=== PATIENT | male | born 1970 | race Caucasian/White ===

== ENCOUNTER 2021-10-16 08:25 | Outpatient (CLI) | payer BC, SELFPAY ==
--- NOTE | 2021-11-04 22:13 | WPDHOMESLEEP ---
Sleep Study - Home Unattended Date of Study: 10/16/21 Ordering Provider: Isabel Kauffman NP Interpreting Provider: Angelica Trujillo, DO Home Sleep Study Type: Watch PAT Height: 1.91 m Weight: 147.418 kg Body Mass Index: 40.6 Neck Circumference (inches): 18.25 [place]: 8 Reason for Sleep Study Snoring, awakening for sleep short of breath Sleep History The patient is a 50-year-old male with hypertension of code and history of tobacco use now had a sleep study ordered by his primary care for evaluation of sleep. 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 He occasionally awakens from sleep short of breath. He occasionally awakens at night with heartburn, belching or cough. He constantly snores loud enough others complain. He occasionally has trouble sleeping when he has a cold. He denies waking up gasping for air throughout the night. He frequently has breathing problems at night observed by himself or others. He rarely sweats excessively at night. He rarely has heart palpitations or irregular heartbeats during the night. He denies falling asleep during the day and while driving. He denies sleep paralysis, cataplexy and hypnagogic / hypnopompic hallucinations. He denies having trouble at school or work due to sleepiness. Denies feeling afraid of when to sleep. He denies having nightmares. He rarely remembers his dreams. He rarely has thoughts racing through his mind. He rarely feels sad, depressed or anxious. He rarely has muscular tension. He rarely notices parts of his body jerk. He rarely kicks during the night. He denies having crawling and aching feelings in his legs as well as leg pain during the night. He denies grinding his teeth during sleep and awakening with morning jaw pain. He is rarely bothered by pain during the day and denies being awakened by pain during the night. He rarely wakes up feeling stiff in morning. He denies waking up with sore achy muscles. He denies waking up with pain in the neck, spine or other joints. The patient goes to bed at 9:00 p.m. on weekdays and 11:00 p.m. on the weekends. He is able to fall asleep within minutes. He wakes up 3-4 times throughout the night for unknown reasons, when he awakens, he will look at the alarm clock. He is able fall back asleep within minutes. He wakes up at 4:30 a.m. on weekdays and 5 at 6:30 a.m. on the weekends. He typically gets 8 hours of sleep per. He will stay in bed for 20 minutes after waking up in the morning. He currently lives with his and 2 children. He does not consume any caffeinated beverages within 2 hours of bedtime. He does not engage in physical exercise before bedtime. He will watch television before falling asleep. He denies taking naps in the afternoon or the evening. He drinks 1 cup of caffeinated beverage every morning. He quit smoking cigarettes 25 years ago. He denies alcohol and recreational drug use. [facility] Past Medical History Medical History GERD (gastroesophageal reflux disease) Hypertension Surgical History Surgical History H/O knee surgery History of shoulder surgery Family History Family History Father Skin cancer Social History Social History Smoking status: Never smoker Alcohol intake: never Substance use: never Medications Home Medications Medication Instructions Recorded Confirmed Type losartan 50 mg tablet 50 mg PO DAILY #90 tabs 08/21/21 08/21/21 Rx omeprazole 20 mg capsule,delayed 20 mg PO DAILY #90 caps 08/25/21 Rx release Sleep Procedure The sleep study was completed using [employer] a technically adequate device with seven channels: peripheral arterial tone, actigraphy, body position, snore, respiratory movement, pulse oximetry, sleep st
[2021-11-04 22:23] VITALS: BMI 40.6
== END 2021-10-21 13:49 | disposition home or self-care (01) ==
PROVIDERS: PCP Nurse Practitioner Family; Visit Provider Nurse Practitioner Family
DX: G47.30 Sleep apnea, unspecified (principal); G47.33 Obstructive sleep apnea (adult) (pediatric)
CPT/HCPCS: 95800

== ENCOUNTER 2022-09-15 12:54 | Outpatient (NON) | payer BC, SELFPAY | END 2022-09-15 12:55 | disposition home or self-care (01) | PROVIDERS: PCP Nurse Practitioner Family; Visit Provider Nurse Practitioner | DX: L72.0 Epidermal cyst (principal) | CPT/HCPCS: 88305 ==

== ENCOUNTER 2022-10-21 16:05 | Outpatient (CLI) | payer BC, SELFPAY ==
--- NOTE | ~2022-10-21 | XR_ITS ---
EXAM: XR soft tissue neck DATE: 10/21/2022 16:20 HISTORY: SORE THROAT X 9 MONTHS . COMPARISON: None available. FINDINGS: Cervical straightening which can occur with positioning or muscle spasm. Multilevel mild c ervical degenerative disc disease. Normal prevertebral soft tissues. Patent airways. Normal epiglotti s Aerated spaces are clear. The apices of the lungs are clear. IMPRESSION: Unremarkable neck soft tissue radiograph findings. Reviewed, dictated and finalized at location K.
== END 2022-10-21 16:06 | disposition home or self-care (01) ==
LOC: CHSIMG 16:07
PROVIDERS: PCP Nurse Practitioner Family; Visit Provider Nurse Practitioner Family
DX: R49.0 Dysphonia (principal); J31.2 Chronic pharyngitis
CPT/HCPCS: 70360

== ENCOUNTER 2023-01-18 01:13 | Day surgery (SDC) | payer BC, SELFPAY ==
[2023-01-13 12:57] VITALS: BMI 42.5
--- NOTE | 2023-01-13 13:02 | PC.NURSE ---
Report to the Outpatient Waiting Room, entrance under the green pavilion located off [facility], at time 0645 on date 01/18/23. Planned Procedure Time: 0845. Time changes happen often and if your time is changed the preop area will call you the afternoon before. - You and your visitor will be asked to self-screen and do not enter if you have any COVID symptoms. - A mask is optional within the hospital at this time. Patients may have clear liquids (water, carbonated beverages, clear teas, apple juice) until 3 hours prior to surgery with a maximum of 20 ounces. - No food from midnight until time of surgery Take the following medications with a SIP of water the morning of surgery: NONE DO NOT STOP ANY OF YOUR OTHER PRESCRIPTION MEDICATIONS PRIOR TO SURGERY ?EXCEPT THE FOLLOWING Medications to discontinue per physician: N/A Date to take last dose: N/A Please no make-up, nail micronesian, hairspray, perfume, deodorant, or body powder the day of surgery. No jewelry (including any body piercings) or valuables the day of surgery, leave them at home. Please take a shower or bath the night before, or the morning of, surgery with an antibacterial soap. Wear comfortable, loose fitting clothing. - Jewelry must be removed prior to entering the operating room. Rings and piercings that are not removed may be cut off. - The hospital will not accept responsibility for valuables. - Please leave all valuables, including medications, at home the day of surgery. If you are going home after surgery, a licensed furniture delivery driver must drive you home. - NO public transportation without another adult if you receive anesthesia. - We recommend that an adult stay with you for 24 hours following discharge. - We also recommend that you do not drive, make important decision, drink alcoholic beverages, or take any drugs that were not prescribed by your health care provider for at least 24 hours after your discharge time. Follow any additional instructions given to you from your surgeon. If you or anyone in your household have experienced Covid symptoms in the past week, please notify your surgeon or the nurse liaison at the phone number below for possible testing. Telephone instructions given to PT - LEANN CARPENTER and asked if any additional questions and then verbalized understanding. Patient advised to call surgeon office or pre surgery nurse liaison [phone] if any additional questions.
--- NOTE | 2023-01-14 09:48 | P.HP_ITS ---
History of Present Illness History of Present Illness Consent: Risks, benefits, and alternatives have been discussed and questions answered. Patient agrees to proceed with procedure. Chief complaint: chronic hoarseness, vocal cord mass Narrative: Tyson Palacios is a 52 year old male REPLACED BY [facility] Past Medical History Medical History GERD (gastroesophageal reflux disease) Hypertension Surgical History Surgical History H/O knee surgery History of shoulder surgery Family History Family History Father Skin cancer Hypertension Heart disease Mother Breast cancer Other Depression Grandparent Breast cancer Grandparent Diabetes mellitus Social History Social History Smoking packs per day: 0.5 Smoking cigarettes per day: 10.0 Years smoked: 1 Smoking pack-years: 0.50 Smoking status: Former smoker Tobacco type: cigarettes Smoking end date: 03/08/94 Alcohol intake: never Substance use: never Substance use type: does not use Lack of Transportation: No Lack of Food: Never True Current Housing: I Have Housing Concerned About Future Housing: No Difficulty Paying Gas/Electric Bills: No Difficulty Paying for Meds: No Currently Unemployed: No Education: High School Diploma/GED Difficulty w/ Childcare or Family Care: No Living arrangements: with family Spiritual care concerns: No Meds Home Medications and Allergies Home Medications Medication Instructions Recorded Confirmed Type losartan 50 mg tablet 50 mg PO DAILY #90 tabs 10/21/22 01/18/23 Rx omeprazole 20 mg capsule,delayed See Rx Instructions .Route 10/21/22 01/18/23 Rx release .COMPLEX #90 caps Allergies Allergy/AdvReac Type Severity Reaction Status Date / Time No Known Allergies Allergy Verified 01/18/23 08:09
--- NOTE | 2023-01-18 05:38 | WPDHPUPDATE1 ---
History and Physical Update Update Date/Time: 01/18/23 05:38 History and Physical has been reviewed, including an updated exam of the patient. There are NO changes in the patient's condition. Risks, benefits, and alternatives have been discussed and questions answered. Patient agrees to proceed with procedure.
--- NOTE | 2023-01-18 06:08 | PM.HPGS ---
History of Present Illness History of Present Illness Consent: Risks, benefits, and alternatives have been discussed and questions answered. Patient agrees to proceed with procedure. Chief complaint: chronic hoarseness, vocal cord mass Narrative: Tyson Palacios is a 52 year old male Review of Systems Constitutional: Constitutional: Reports as per [facility] Past Medical History Medical History GERD (gastroesophageal reflux disease) Hypertension Surgical History Surgical History H/O knee surgery History of shoulder surgery Family History Family History Father Skin cancer Hypertension Heart disease Mother Breast cancer Other Depression Grandparent Breast cancer Grandparent Diabetes mellitus Social History Social History Smoking packs per day: 0.5 Smoking cigarettes per day: 10.0 Years smoked: 1 Smoking pack-years: 0.50 Smoking status: Former smoker Tobacco type: cigarettes Smoking end date: 03/08/94 Alcohol intake: never Substance use: never Substance use type: does not use Lack of Transportation: No Lack of Food: Never True Current Housing: I Have Housing Concerned About Future Housing: No Difficulty Paying Gas/Electric Bills: No Difficulty Paying for Meds: No Currently Unemployed: No Education: High School Diploma/GED Difficulty w/ Childcare or Family Care: No Living arrangements: with family Spiritual care concerns: No Meds Home Medications and Allergies Home Medications Medication Instructions Recorded Confirmed Type losartan 50 mg tablet 50 mg PO DAILY #90 tabs 10/21/22 01/13/23 Rx omeprazole 20 mg capsule,delayed See Rx Instructions .Route 10/21/22 01/13/23 Rx release .COMPLEX #90 caps Allergies Allergy/AdvReac Type Severity Reaction Status Date / Time No Known Allergies Allergy Verified 01/13/23 12:57 Assessment and Plan Assessment and plan (1) Chronic hoarseness: Code(s): R49.0 - Dysphonia Status: Acute Plan microlaryngoscopy and vocal biopsy
--- NOTE | 2023-01-18 06:19 | ECG_ITS ---
Measurements Intervals [place] Rate: 62 P: 7 [place]: 150 QRS: -1 QRSD: 107 T: 10 QT: 439 QTc: 448 Interpretive Statements SINUS RHYTHM NORMAL ECG NO PREVIOUS ECG AVAILABLE FOR COMPARISON Electronically Signed On 01-18-2023 8:18:47 RENTAL SALES REPRESENTATIVE by Magdi Rodas D.O.
[2023-01-18] MEDS: LACTATED RINGERS 1,000 ML 30 ML IV CONT (06:45)
[2023-01-18 07:00] VITALS: BP 131/89; PULSE 68; RESP 18; TEMP 36.5; O2SAT 99
--- NOTE | 2023-01-18 08:05 | P.PNAN_ITS ---
Anes - Initial Pre Proc Eval Procedure: Operation Date: 01/18/23 08:45 Proposed Procedures p Microlaryngoscopy, Excision Vocal Cord Mass - Ty Cortes MD Date/Time: 01/18/23 08:05 Surgeon: Ty Cortes MD Pre Op Diagnosis: chronic hoarseness, vocal cord mass Patient Data Age: 52 Gender: M Height: 1.91 m Weight: 149.8 kg Allergies Allergy/AdvReac Type Severity Reaction Status Date / Time No Known Allergies Allergy Verified 01/13/23 12:57 Home Medications Medication Instructions Recorded Confirmed Type losartan 50 mg tablet 50 mg PO DAILY #90 tabs 10/21/22 01/13/23 Rx omeprazole 20 mg capsule,delayed See Rx Instructions .Route 10/21/22 01/13/23 Rx release .COMPLEX #90 caps Patient hx anesthesia problems: none Family hx anesthesia problems: none Results Review: All pre-operative results and documents have been reviewed as part of the pre- operative evaluation. [facility] Past Medical History Medical History GERD (gastroesophageal reflux disease) Hypertension Surgical History Surgical History H/O knee surgery History of shoulder surgery Family History Family History Father Skin cancer Hypertension Heart disease Mother Breast cancer Other Depression Grandparent Breast cancer Grandparent Diabetes mellitus Social History Social History Smoking packs per day: 0.5 Smoking cigarettes per day: 10.0 Years smoked: 1 Smoking pack-years: 0.50 Smoking status: Former smoker Tobacco type: cigarettes Smoking end date: 03/08/94 Alcohol intake: never Substance use: never Substance use type: does not use Lack of Transportation: No Lack of Food: Never True Current Housing: I Have Housing Concerned About Future Housing: No Difficulty Paying Gas/Electric Bills: No Difficulty Paying for Meds: No Currently Unemployed: No Education: High School Diploma/GED Difficulty w/ Childcare or Family Care: No Living arrangements: with family Spiritual care concerns: No Anes - Eval Final PreProcedure Day of Procedure 01/18/23 08:05 Patient weight: morbidly obese Heart: regular rate and rhythm Lungs: clear to auscultation Airway: Mallampati scale class II Neurological: alert and oriented Last oral intake: >/= 8 hours ASA classification: III Emergent: no Anesthetic plan: proceed Anesthesia type and monitoring: general ETT and standard monitoring Results Review: All pre-operative results and documents have been reviewed as part of the pre- operative evaluation. Informed Consent: The patient's anesthetic plan and its attendant risks and benefits were discussed with the patient/family/POA. Questions were solicited and answers provided to the satisfaction of the patient/family/POA.
--- NOTE | 2023-01-18 09:08 | PM.HPGS ---
History of Present Illness History of Present Illness Consent: Risks, benefits, and alternatives have been discussed and questions answered. Patient agrees to proceed with procedure. Chief complaint: chronic hoarseness, vocal cord mass Narrative: Tyson Palacios is a 52 year old male Review of Systems Review of Systems: All systems reviewed & are unremarkable except as noted in HPI and below Constitutional: Constitutional: Reports as per HPI [facility] Past Medical History Medical History GERD (gastroesophageal reflux disease) Hypertension Surgical History Surgical History H/O knee surgery History of shoulder surgery Family History Family History Father Skin cancer Hypertension Heart disease Mother Breast cancer Other Depression Grandparent Breast cancer Grandparent Diabetes mellitus Social History Social History Smoking packs per day: 0.5 Smoking cigarettes per day: 10.0 Years smoked: 1 Smoking pack-years: 0.50 Smoking status: Former smoker Tobacco type: cigarettes Smoking end date: 03/08/94 Alcohol intake: never Substance use: never Substance use type: does not use Lack of Transportation: No Lack of Food: Never True Current Housing: I Have Housing Concerned About Future Housing: No Difficulty Paying Gas/Electric Bills: No Difficulty Paying for Meds: No Currently Unemployed: No Education: High School Diploma/GED Difficulty w/ Childcare or Family Care: No Living arrangements: with family Spiritual care concerns: No Meds Home Medications and Allergies Home Medications Medication Instructions Recorded Confirmed Type losartan 50 mg tablet 50 mg PO DAILY #90 tabs 10/21/22 01/18/23 Rx omeprazole 20 mg capsule,delayed See Rx Instructions .Route 10/21/22 01/18/23 Rx release .COMPLEX #90 caps Allergies Allergy/AdvReac Type Severity Reaction Status Date / Time No Known Allergies Allergy Verified 01/18/23 08:09 Vital Signs Vital Signs - 24 hr 01/18/23 07:00 Temperature 36.5 C Pulse Rate 68 Respiratory Rate 18 Blood Pressure 131/89 Pulse Oximetry 99 Oxygen Delivery Room Air Assessment and Plan Assessment and plan (1) Chronic hoarseness: Code(s): R49.0 - Dysphonia Status: Acute (2) 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
--- NOTE | 2023-01-18 09:13 | W.PM.PROC2 ---
Procedure Note - Detailed Date of Procedure 01/18/23 Pre-op Diagnosis chronic hoarseness, vocal cord mass Post-op Diagnosis Same Procedure Performed PATIENT WAS PREPPED AND DRAPED IN USUAL FASHION GENERAL ANESTHESIA THE MCIVOR MAC MOUTH GAG WAS INSERTED WITH THE 400 MM LENS ON THE OPERATING MICROSCOPE A LARGE PAPILLOMA WAS IDENTIFIED ON THE LEFT CORD THIS WAS BIOPSIED OFF Surgeon Ty Cortes MD Anesthesia General Description of Procedure PATIENT WAS PREPPED AND DRAPED IN FASHION GENERAL ANESTHESIA LARYNGOSCOPE SINCE THIS LOCAL LEVEL OF GLOTTIS WITH 400 MM LENS A BIOPSY WAS TAKEN ON THE LEFT VOCAL CORD Drains No Packing No Pathology Yes Disposition PACU
[2023-01-18 09:15] VITALS: BP 147/88; PULSE 90; RESP 12; TEMP 36.1; O2SAT 99
[2023-01-18 09:30] VITALS: BP 142/88; PULSE 77; RESP 18; O2SAT 100
[2023-01-18 09:45] VITALS: BP 148/90; PULSE 74; RESP 18; O2SAT 100
[2023-01-18 09:48] VITALS: BP 146/90; PULSE 67; RESP 18
[2023-01-18 10:15] VITALS: BP 157/105; PULSE 63; RESP 18
== END 2023-01-18 10:27 | disposition home or self-care (01) ==
PROVIDERS: PCP Nurse Practitioner Family; Visit Provider Otolaryngology
PROC: 0CJS8ZZ Inspection of Larynx, Via Natural or Artificial Opening Endoscopic (ICD-10-PCS; CPT 31575; principal; 2023-01-18 08:45)
DX: D14.1 Benign neoplasm of larynx (principal); I10 Essential (primary) hypertension; K21.9 Gastro-esophageal reflux disease without esophagitis; Z87.891 Personal history of nicotine dependence; E66.01 Morbid (severe) obesity due to excess calories; Z68.41 Body mass index [BMI] 40.0-44.9, adult
CPT/HCPCS: 31541; 88305; 93005; A9270; J0330; J1940; J2250; J2405; J2704; J3010; J7120

== ENCOUNTER 2023-05-07 14:02 | Outpatient (CLI) | payer BC, SELFPAY ==
--- NOTE | ~2023-05-07 | XR_ITS ---
EXAMINATION: XR clavicle BI DATE: 05/07/2023 14:44 INDICATION: Medial right clavicle pain. TECHNIQUE: 2 views of right clavicle and 2 views of left clavicle were obtained. COMPARISON: None. FINDINGS: RIGHT CLAVICLE: Bone alignment is normal. No fracture. There is moderate osteoarthritis of glenohumer al joint and mild osteoarthritis of acromioclavicular joint. There is a radiopaque marker adjacent to proximal humeral diaphysis. LEFT CLAVICLE: Bone alignment is normal. No fracture. There is mild osteoarthritis of glenohumeral renzo int and acromioclavicular joint. IMPRESSION: 1. Polyarticular osteoarthritis. Reviewed, dictated and finalized at location A. SETTER
== END 2023-05-07 14:03 | disposition home or self-care (01) ==
LOC: CHSIMG 14:05
PROVIDERS: PCP Nurse Practitioner Family; Visit Provider Nurse Practitioner Family
DX: M89.8X1 Other specified disorders of bone, shoulder (principal); M19.011 Primary osteoarthritis, right shoulder
CPT/HCPCS: 73000

== ENCOUNTER 2023-10-20 16:56 | Outpatient (CLI) | payer BC, SELFPAY ==
[2023-10-20 17:16] LABS: Basophils Absolute Auto 0.08 K/mm3 (0.00-0.10); Basophils Percent Auto 1.1 % (0.0-1.0); Eosinophils Absolute Auto 0.15 K/mm3 (0.02-0.50); Eosinophils Percent Auto 2.1 % (1.0-6.0); Hematocrit 40.7 % (40.0-54.0); Immature Granulocyte Absolute 0.03 K/mm3 (0.00-0.00); Immature Granulocyte Percent A 0.4 % (0.0-0.0); Lymphocytes Absolute Auto 1.98 K/mm3 (1.10-4.50); Lymphocytes Percent Auto 27.2 % (18.0-42.0); Mean Corpuscular HGB Conc 34.4 g/dL (32-36); Mean Corpuscular Hemoglobin 29.4 pg (27.0-31.0); Mean Corpuscular Volume 85.5 fL (78.0-102.0); Mean Platelet Volume 9.3 fl (8.7-11.0); Monocytes Absolute Auto 0.69 K/mm3 (0.10-0.90); Monocytes Percent Auto 9.5 % (2.0-11.0); Neutrophils Absolute Auto 4.36 K/mm3 (1.70-7.20); Neutrophils Percent Auto 59.7 % (50.0-70.0); Platelet Count Result 242 K/mm3 (150-420); Red Blood Count 4.76 M/mm3 (4.70-6.10); Red Cell Distribution Width 12.5 % (11.6-14.4); White Blood Count 7.3 K/mm3 (4.8-10.8)
[2023-10-20 18:03] LABS: Alanine Aminotransferase 50 U/L (16-63); Albumin Level 4.2 g/dL (3.4-5.0); Alkaline Phosphatase 68 U/L (46-116); Anion Gap 8 mmol/L (4-12); Aspartate Amino Transferase 27 U/L (15-37); Bilirubin,Total 0.4 mg/dL (0.00-1.00); Blood Urea Nitrogen 16 mg/dL (7-18); Calcium 9.2 mg/dL (8.5-10.1); Carbon Dioxide 29 mmol/L (21-32); Chloride 103 mmol/L (98-108); Cholesterol 187 mg/dL (0-200); Estimated Glomerular Filt Rate > 60; Free T4 Free Thyroxine 0.87 ng/dL (0.76-1.46); Glucose 87 mg/dL (70-99); HDL Direct 40 mg/dL (40-60); LDL Cholesterol Calculated 90 mg/dL (<130); Osmolality Calculated 290 mOsm/kg (285-295); Potassium 4.2 mmol/L (3.5-5.1); Sodium 140 mmol/L (136-145); Thyroid Stimulating Hormone 1.36 uIU/mL (0.36-3.74); Total Protein 7.1 g/dL (6.4-8.2); Triglycerides 287 mg/dL (0-150)
[2023-10-21 13:09] LABS: Insulin Level Total 15.1 uIU/mL
[2023-10-25 20:33] LABS: Testosterone Free 26.2 pg/mL (35.0-155.0); Testosterone Total 235 ng/dL (250-1100)
[2023-10-27 01:58] LABS: Vitamin D 25 Hydroxy 30 ng/mL (30-100)
[2023-11-06 21:33] LABS: Free Insulin 10.2 uIU/mL (1.5-14.9)
== END 2023-10-20 16:57 | disposition home or self-care (01) ==
LOC: CHSLAB 16:58
PROVIDERS: PCP Nurse Practitioner Family; Visit Provider Nurse Practitioner Family
DX: R53.83 Other fatigue (principal); Z13.6 Encounter for screening for cardiovascular disorders; Z79.899 Other long term (current) drug therapy; I10 Essential (primary) hypertension
CPT/HCPCS: 36415; 80053; 80061; 82306; 83525; 83527; 84402; 84403; 84439; 84443; 85025